=== PATIENT | female | born 1945 | race Caucasian/White ===

== ENCOUNTER → 2018-02-03 09:15 | Outpatient (CLI) | payer MEDICARE, BC ==
[2016-10-05 11:24] VITALS: BMI 34.4
[~2018-02-03 09:15] MED LIST: AMBIEN10 MG PO; BENADRYL25 MG PO; ELIQUIS2.5 MG PO; FARXIGA10 MG PO; NITROQUICK0.4 MG SL; OMEPRAZOLE20 M1 PO; OXYCODONE HCL5 MG PO
== END | disposition home or self-care (01) ==
LOC: D.NM 09:15
DX: Z96.651 Presence of right artificial knee joint (principal)

== ENCOUNTER → 2018-02-07 13:59 | Outpatient (CLI) | payer MEDICARE, BC ==
[2016-10-05 11:24] VITALS: BMI 34.4
[2018-02-07 15:32] LABS: BASOPHILS 0.4 % (0-2); EOSINOPHILS 2.8 % (0-7); HEMATOCRIT 39.7 % (36.0-48.0); HEMOGLOBIN 13.8 g/dL (12-16); IMMATURE GRANULOCYTES 0.1 % (0-5); LYMPHOCYTES 26.4 % (15-50); MCH 31.5 pg (26.0-34.0); MCHC 34.8 g/dL (31.0-37.0); MCV 90.6 fL (80.0-100.0); MEAN PLATELET VOLUME 10.5 fL (7.4-10.4); NEUTROPHILS 62.3 % (40-80); RBC 4.38 10x6/uL (4.00-5.40); WBC 7.7 10x3/uL (4.8-10.8)
[2018-02-07 15:40] LABS: PLATELET COUNT 263 10x3/uL (130-400)
[2018-02-07 16:59] LABS: ERYTHROCYTE SEDIMENTATION RATE 20 mm/hr (0-30)
== END | disposition home or self-care (01) ==
LOC: D.LABREF 13:59
PROVIDERS: Nurse Practitioner Family
DX: M25.561 Pain in right knee (principal)

== ENCOUNTER 2018-04-19 15:08 | Observation (INO) | payer MEDICARE, BC ==
[~2018-04-19] VITALS: Ht 160 cm; Wt 84.5 kg
--- NOTE | ~2018-04-19 | EC ---
PATIENT:DORI PEREYRA DATE OF SERVICE: 04/19/18 SEX: F MEDICAL RECORD: [id number] DATE OF : 47 LOCATION:D.M2 D.212 AGE OF PATIENT: 73 ADMISSION DATE: 04/19/18 REFERRING PHYSICIAN: INTERPRETING PHYSICIAN: MERRILL FRYE MD ECHOCARDIOGRAM REPORT ECHO CHARGES 4 ECHO COMPLETE Date: 04/20 CLINICAL DIAGNOSIS: CHEST PAIN, HTN AFIB ECHOCARDIOGRAPHIC MEASUREMENTS (adult normal given) AC root (d.<3.7cm) 3.8 cm LV Septum d (<1.2 cm> 1.8 cm Valve Excursion 2.0 cm LV Septum (systole) 2.0 cm Left Atria (s.<4.0cm> 3.4 cm LVPW d(<1.2cm) 1.8 cm RV (d.<2.3cm) 3.2 cm LVPW (sytole) 1.9 cm LV diastole(<5.6CM) 4.3 cm MV E-F(>70mm/sec) cm LV systole 2.7 cm LVOT Diameter 2.0 cm MV exc.(>10mm) 1.7 cm Est.ejection fraction (50-75%) % DOPPLER: LVIT cm/sec A 91.0 cm/sec E 77.0 cm/sec LA cm/sec RVSP 30 mmHg LVOT 137 cm/sec AOP1/2T 635 m/s Asc. Ao 169 cm/sec RVOT 107 cm/sec RA cm/sec PA 139 cm/sec AV Gradient Peak 11.42mmHg AV Mean 4.99 mmHg AV Area 2.2 cm MV Gradient Peak 4.45 mmHg MV Mean 1.69 mmHg MV Area cm COMMENTS: Machine Ii Engraver: 2 RIKI GRULLON Hand Spring Former: 4 Dr. Frye TAPE# PACS Pericardial Effusion N DATE OF SERVICE: FINDINGS: 1. The left ventricle has moderate concentric left ventricular hypertrophy with inflow characteristics consistent with diastolic dysfunction. Ejection fraction is 65%, somewhat hyperdynamic. 2. The left atrium is normal in size, shape, structure, and function. 3. The mitral valve is normal. 4. Aortic valve has sclerotic appearance without stenosis and trace to mild aortic insufficiency. ECHOCARDIOGRAM REPORT [id number] DORI PEREYRA 5. The tricuspid valve has mild tricuspid regurgitation with an RVSP of 25-30 mmHg. 6. The right ventricle is normal. 7. The right atrium is normal. 8. The pulmonic valve is normal. 9. The pericardium is normal. CONCLUSIONS: The patient has evidence of mild hypertensive heart disease with preserved LV systolic function and evidence of diastolic dysfunction with trace aortic regurgitation and aortic valve sclerosis without stenosis. TRANSINT:[id number] Voice Confirmation ID: [id number] DOCUMENT ID: [id number] MERRILL FRYE MD at 0927 CC: [id number] DICTATION DATE: 04/21/18 1006 TIE TAPE MACHINE OPERATOR: 04/21/18 1031 DIS IN 04/20/18 [facility] [address] [place] [address]
[2018-04-19] MEDS ORDERED: LISINOPRIL10 MG PO (15:16)
[2018-04-19] MEDS ORDERED: ULTRAM50 MG PO (15:16)
[2018-04-19] MEDS ORDERED: RESTORIL15 MG PO (15:16)
[2018-04-19 15:49] LABS: BASOPHILS 0.1 % (0-2); EOSINOPHILS 2.1 % (0-7); HEMATOCRIT 37.3 % (36.0-48.0); IMMATURE GRANULOCYTES 0.2 % (0-5); LYMPHOCYTES 23.9 % (15-50); MCH 31.6 pg (26.0-34.0); MCHC 34.9 g/dL (31.0-37.0); MCV 90.8 fL (80.0-100.0); MEAN PLATELET VOLUME 9.7 fL (7.4-10.4); MONOCYTES 7.4 % (2-11); NEUTROPHILS 66.3 % (40-80); PLATELET COUNT 308 10x3/uL (130-400); RBC 4.11 10x6/uL (4.00-5.40); RDW 12.9 % (11.5-14.5); WBC 8.4 10x3/uL (4.8-10.8)
[2018-04-19 16:00] VITALS: BP 146/78
[2018-04-19 16:09] LABS: ALBUMIN 3.1 g/dL (3.4-5.0); ALKALINE PHOSPHATASE 92 U/L (46-116); ALT (SGPT) 28 U/L (10-68); BILIRUBIN - TOTAL 0.21 mg/dL (0.2-1.3); CALC OSMOLALITY 283 mosm/kg (275-300); CALCIUM 10.5 mg/dL (8.5-10.1); CARBON DIOXIDE 28.6 mmol/L (21.0-32.0); CHLORIDE - SERUM 106 mmol/L (98-107); CREATININE - SERUM 1.1 mg/dL (0.6-1.3); GLUCOSE 143 mg/dL (74-106); POTASSIUM - SERUM 3.5 mmol/L (3.5-5.1); PROTEIN - SERUM 7.4 g/dL (6.4-8.2); SODIUM 142 mmol/L (136-145); UREA NITROGEN 11 mg/dL (7-18); eGFR NON AFRICAN AMERICAN 52 mL/min (90-120)
[2018-04-19 16:21] LABS: CKMB 2.9 U/L (0.0-3.6); CREATINE KINASE 127 UL (21-215); PRO BNP 65 pg/mL (0-125)
[2018-04-19 16:26] LABS: TROPONIN-I < 0.017 ng/mL (0.000-0.060)
[2018-04-19 16:30] VITALS: BP 140/74
[2018-04-19 17:00] VITALS: BP 141/80
[2018-04-19 17:49] VITALS: BP 142/79
[2018-04-19 20:46] VITALS: BP 159/68
[2018-04-19 23:43] VITALS: BP 159/68; BMI 33.0
[2018-04-20] VITALS: BP 139/67
[2018-04-20 04:00] VITALS: BP 157/62
[2018-04-20 07:56] VITALS: BP 124/59
[2018-04-20 10:52] VITALS: Ht 160 cm; Wt 84.5 kg
[2018-04-20 12:22] VITALS: BP 146/64
== END 2018-04-20 14:49 | disposition home or self-care (01) ==
LOC: D.ER 15:08 → D.M2 17:21 → OBSVTIME 17:21 → D.EDHOLD 17:21 → D.M2 18:16
PROVIDERS: Family Medicine
DX: R07.9 Chest pain, unspecified (principal); I10 Essential (primary) hypertension; E11.9 Type 2 diabetes mellitus without complications; Z87.891 Personal history of nicotine dependence; M54.2 Cervicalgia; R60.9 Edema, unspecified

== ENCOUNTER 2018-07-31 08:18 | Outpatient (CLI) | payer MEDICARE, BC ==
[~2018-07-31] VITALS: Ht 160 cm; Wt 81.4 kg
--- NOTE | ~2018-07-31 | OP ---
PATIENT NAME: DORI PEREYRA MEDICAL RECORD: [id number] :47 LOCATION:D.CAT ADMISSION DATE: SURGEON: MARIA M ALMENDAREZ MD DATE OF OPERATION: 07/31/2018 PROCEDURES: 1. PTCA stent RCA. 2. Left heart catheterization. 3. Selective coronary angiography. 4. Left ventriculogram. INDICATION: Angina and coronary artery disease. PROCEDURE IN DETAIL: After informed consent was obtained and after a detailed description of the risks, benefits as well as alternative therapies, the patient elected to proceed with angiogram and angioplasty. The right radial area was prepped and draped in normal sterile fashion. Right radial artery was cannulated via modified Seldinger technique with placement of 6-Beninese sheath. All catheters exchanged through this sheath. FINDINGS: The left ventriculogram was performed in standard 30-degree GARCIA view, reveals good cardiac wall motion throughout all segments. Overall ejection fraction estimated 60%. SELECTIVE CORONARY ANGIOGRAPHY: 1. Left main is with no significant angiographic disease. 2. Left anterior descending has moderate irregularities, but no flow-limiting stenosis. 3. The left circumflex has moderate irregularities, but no flow-limiting stenosis. 4. Right coronary artery has 70% to 80% stenosis distally. PTCA STENT OF THE RCA: The stent used was a 3.0 x 9 mm Integrity. Result was 0% residual stenosis. OVERALL IMPRESSION: Successful percutaneous transluminal coronary angioplasty stent of the right coronary artery going from 80% initial stenosis to 0% residual. TRANSINT:[id number] Voice Confirmation ID: [id number] DOCUMENT ID: [id number] MARIA M ALMENDAREZ MD at 0923 CC: [id number] DICTATION DATE: 07/31/18 1012 EVENT PLANNING INTERN: 07/31/18 1145 DEP CLI 07/31/18 [place] [id number] [place] [id number]
--- NOTE | ~2018-07-31 | HEMODYNAMI ---
PATIENT:DORI PEREYRA MEDICAL RECORD: [id number] : 47 LOCATION:RAY ADMISSION DATE: 07/31/18 Generatedon:07/31/201810:13 Patient name: DORI PEREYRA Patient #: [id number] SSN: : 1945 Date of study: 07/31/2018 Page: Of Hemodynamic Procedure Report Patient Data Patient Demographics Procedure consent was obtained First Name: DORI Gender: Female Last Name: RODDY : 1945 Middle Initial: CHRISTIANO Age: 73 year(s) Patient #: [id number] Race: Unknown Additional ID: [id number] Contact details [address]: [address] [place] [address] State: [place] City: [place] Zip code: [address] Past Medical History Allergies Allergen Reaction Date Comments Reported Other allergy 07/31/2018 sulfa Admission Admission Data Admission Date: 07/31/2018 Admission Time: 8:18 Height (in.): 5.4 BSA: 0.31 (m2) Height (cm.): 13.72 BMI: 4364.05 (kg/m2) Weight (lbs.): 181 Weight (kg.): 82.1 Lab Results Lab Result Date: 07/31/2018 Lab Result Time: 0:00 Biochemistry Name Units Result Min Max BUN mg/dl 12 --(-*--)-- 7 18 Creatinine mg/dl 0.7 --(*---)-- 0.6 1.3 CBC Name Units Result Min Max Hemoglobin g/dl 13.4 -*(----)-- 13.5 17.5 Procedure Procedure Types Cath Procedure Diagnostic Procedure [facility] w/Coronaries PCI Procedure Coronary Stent Coronary Stent Initial Procedure Description Procedure Date Procedure Date: 07/31/2018 Procedure Start Time: 9:56 Procedure End Time: 10:09 Procedure Staff Name Function Shankar Cordero MD Performing Physician Sudha Evans RT Monitor Cassy Song RT Scrub June Adler RN Nurse Haylie Ballard RN Nurse Procedure Data Cath Procedure Fluoroscopy Diagnostic fluoroscopy Total fluoroscopy Time: 2.7 time: 2.7 min min Diagnostic fluoroscopy Total fluoroscopy dose: 878 dose: 878 mGy mGy Contrast Material Contrast Material Type Amount (ml) Isovue 300 84 Entry Location Entry Primary Successful Side Size Upsize Upsize Entry Closure Shah ccessful Closure Location (Fr) 1 (Fr) 2 (Fr) Remarks Device Remarks Radial Right 6 Fr Mechanical artery Short Compression Estimated blood loss: 11 ml Diagnostic catheters Device Type Used For End Catheter Placement DIAGNOSTIC [place] 110cm 5 Procedure Fr catheter ([id number]) Procedure Complications No complications Procedure Medications Medication Administration Route Dosage Oxygen etCO2 Nasal cannula 2 l/min Lidocaine 2% added to field 20 Heparin Flush Bag added to field 2 bags (1000units/500ml NS) 0.9% NaCl I.V. 100 ml/hr Radial Cocktail I.A. 1 syringe (Verapomil 2mg/Nitro 400mcg/Heparin 1500units) Versed I.V. 1 mg Fentanyl I.V. 50 mcg Heparin Bolus I.V. 4000 units Integrilin (Bolus I.V. 7.3 ml 2mg/ml) Versed I.V. 1 mg Fentanyl I.V. 50 mcg Plavix P.O. 600 mg Hemodynamics Rest BSA: 0.31 (m2) HGB: 13.4 (g/dl) O2 Consumption: Estimated: 28.59 (ml/min) O2 Con sumption indexed: Estimated:92.23 (ml/min/m) Heart Rate: 71 (bpm) Snapshots Pre Cath Intra NCS Post Cath Vital Signs Time Heart Resp SPO2 etCO2 NIBP (mmHg) Rhythm Pain Sedation Rate (ipm) (%) (mmHg) Status Level (bpm) 9:41:02 71 16 96 27.9 139/69(119) NSR 0 (11) 10(A) , No pain 9:45:45 68 23 98 27.2 121/59(91) NSR 0 (11) 10(A) , No pain 9:50:28 73 16 98 13.6 121/55(87) NSR 0 (11) 10(A) , No pain 9:55:10 74 16 93 31.7 123/58(99) NSR 0 (11) 10(A) , No pain 9:59:51 78 18 95 27.2 110/50(86) NSR 0 (11) 10(A) , No pain 10:04:32 82 15 93 37.7 109/49(86) NSR 0 (11) 10(A) , No pain 10:09:12 76 18 96 34.7 114/49(92) NSR 0 (11) 10(A) , No pain Medications Time Medication Route Dose Verified Delivered Reason Not es Effectiveness by by 9:44:29 Oxygen etCO2 2 l/min Shankar Watkins used for Nasal Gil Adler RN procedure cannula 9:44:38 Lidocaine 2% added 20ml Shankar Chaparro for local to vial Gil Cordero MD anesthetic field 9:44:44 Heparin Flush added 2 bags Shankar Chaparro used for Bag to Gil Cordero MD procedure (1000units/500ml field NS) 9:44:54 0.9% NaCl I.V. 100 Shankar Watkins Per physician ml/hr Gil Adler RN 9:53:45 Versed I.V. 1 mg Shankar Watkins for sedation Gil Adler RN 9:53:52 Fentanyl I.V. 50 mcg Shankar Watkins for sedation Gil Adler RN 9:57:04 Fentanyl I.V. 50 mcg Shankar Watkins for sedation Gil Adler RN 9:57:39 Radial Cocktail I.A. 1 Shankar Watkins for (Verapomil syringe Gil Adler RN vasodilation 2mg/Nitro 400mcg/Heparin 1500units) 9:57:59 Versed I.V. 1 mg Shankar Watkins for sedation Gil Adler RN 10:02:48 Heparin Bolus I.V. 4000 Shankar Watkins for carolee ified units Gil Adler RN anticoagulation with dr cordero 10:05:29 Integrilin I.V. 7.3 ml Shankar Watkins for was leticia (Bolus 2mg/ml) Gil Adler RN antiplatelet 2.7 ml therapy of vial 10:10:35 Plavix P.O. 600 mg Shankar Watkins for Gil Adler RN antiplatelet therapy Procedure Log Time Note 9:28:37 June Adler RN sent for patient. Start room use. 9:35:45 Time tracking: Regular hours (M-F 7:00 - 5:00) 9:35:48 Plan of Care:Hemodynamics will remain stable., Cardiac rhythm will remain stable., Comfort level will be maintained., Respiratory function will remain adequate., Patient/ family verbilizes understanding of procedure., Procedure tolerated without complication., Recovers from procedure without complications.. 9:35:49 Signed procedure consent form obtained from patient. 9:35:56 H&P Date Dictated: 07/27/2018 Within 30 days and on chart., H&P Addendum completed by physician on day of procedure. (MUST COMPLETE FOR ALL OUTPATIENTS). 9:36:01 Patient received from Pre/Post Procedure Room to CCL 1 Alert and oriented. Tansferred to table in Supine position. 9:36:02 Warm blankets applied, and london hugger turned on for patient comfort. 9:36:03 Correct patient and procedure confirmed by team. 9:36:03 ECG and BP/O2 sat monitors applied to patient. 9:40:09 Vital chart was started 9:43:13 Baseline sample Acquired. 9:43:16 Rhythm: sinus rhythm 9:43:18 Full Disclosure recording started 9:43:19 Pre-procedure instructions explained to patient. 9:43:19 Pre-op teaching completed and patient verbalized understanding. 9:43:20 Family in waiting room. 9:43:21 Patient NPO since Midnight. 9:43:30 Patient allergic to Other allergysulfa 9:43:33 Is the patient allergic to Iodine/contrast media? No. 9:43:42 Is patient on blood thinner?No 9:44:29 Oxygen 2 l/min etCO2 Nasal cannula was administered by June Adler RN; used for procedure; 9:44:33 Patient diabetic? No. 9:44:38 Lidocaine 2% 20ml vial added to field was administered by Shankar Cordero MD; for local anesthetic; 9:44:43 DIET CONTROLLED 9:44:44 Heparin Flush Bag (1000units/500ml NS) 2 bags added to field was administered by Shankar Cordero MD; used for procedure; 9:44:46 Patient not . Patient is over age 55. 9:44:51 Previous problem with sedation/anesthesia? No ? 9:44:53 Snore? Yes 9:44:53 Sleep apnea? No 9:44:54 0.9% NaCl 100 ml/hr I.V. was administered by Buffie Adler RN; Per physician; 9:44:55 Deviated septum? No 9:44:55 Opens mouth fully? Yes 9:44:56 Sticks out tongue? Yes 9:46:04 Airway obstruction? No ? 9:46:09 Dentures? Yes IN TIGHT 9:46:16 Modified Dheeraj's test Ulnar < 7 seconds 9:46:18 Patient pain scale 0/10 ?. 9:46:30 IV patent on arrival in left hand with 0.9% NaCl at [facility]. 9:48:44 Lab Result : BUN 12 mg/dl 9:48:44 Lab Result : Creatinine 0.7 mg/dl 9:48:44 Lab Result : Hemoglobin 13.4 g/dl 9:48:47 Lab results completed and on chart. 9:48:52 Right Radial & Right Groin area was prepped with chlora-prep and draped in sterile fashion 9:48:53 Alarms reviewed by R. N. 9:48:53 Sharps counted by scrub and verified by R.N. 9:48:57 Use device set Radial Dx or PCI 9:48:58 ACIST Syringe (31184) opened to sterile field. 9:48:58 Bag Decanter () opened to sterile field. 9:48:59 ACIST Hand Control (90068) opened to sterile field. 9:48:59 ACIST Manifold (68954) opened to sterile field. 9:49:02 Tegaderm 4 x 4 (1626W) opened to sterile field. 9:49:03 Medline Cath Pack ([id number]) opened to sterile field. 9:49:04 DIAGNOSTIC WIRE .035 260cm J wire (595927) opened to sterile field. 9:49:04 MBrace Wrist Support ([id number]) opened to sterile field. 9:49:05 SHEATH 6Fr Prelude Radial ([id number]) opened to sterile field. 9:51:47 Patient Height : 5.4 inches 9:51:51 Patient Weight : 181 lbs 9:52:34 --------ALL STOP TIME OUT------ 9:52:35 Final Timeout: patient, procedure, and site verified with staff and physician. All members of the team are in agreement. 9:52:37 Right Radial & Right Groin site verified by team. 9:52:40 Physical assessment completed. ASA score P 2 - A patient with mild systemic disease as per Shankar Cordero MD. 9:52:43 Sedation plan: IV Moderate Sedation Medication:Versed, Fentanyl 9:53:11 Zero performed for pressure channel P1 9:53:33 Zero performed for pressure channel P1 9:53:45 Versed 1 mg I.V. was administered by June Adler RN; for sedation; 9::52 Fentanyl 50 mcg I.V. was administered by June Adler RN; for sedation; 9:56:28 Procedure started. 9:56:55 Local anesthetic to right radial artery with Lidocaine 2% by Shankar Cordero MD.INITIAL ACCESS ONLY 9:57:04 Fentanyl 50 mcg I.V. was administered by June Adler RN; for sedation; 9:57:33 A 6 Fr Short sheath was inserted into the Right Radial artery 9:57:39 Radial Cocktail (Verapomil 2mg/Nitro 400mcg/Heparin 1500units) 1 syringe I.A. was administered by June Adler RN; for vasodilation; 9:57:59 Versed 1 mg I.V. was administered by June Adler RN; for sedation; 9:58:03 A DIAGNOSTIC [place] 110cm 5 Fr catheter ([id number]) was advanced over the wire and used for Procedure. 9:58:58 LV gram done using GARCIA 9:59:04 Injector settings: Ml/sec: 5, Volume: 15, 9:59:10 EF : 55 % 10:00:22 LCA angiography performed. 10:00:52 RCA angiography performed. 10:00:54 Catheter exchanged over wire. 10:01:03 INFLATOR Merit BasixCompak (OQ4163) opened to sterile field. 10:01:04 CHOICE PT Extra Support 182cm wire ([id number]) opened to sterile field. 10:02:01 GUIDE 6FR AR 2.0 catheter ([id number]) opened to sterile field. 10:02:10 6 Fr AR2 guide catheter was inserted over the wire 10:02:48 Heparin Bolus 4000 units I.V. was administered by June Adler RN; for anticoagulation; verified with dr cordero 10:03:26 CHOICE ES 182 wire advanced. 10:04:26 Wire advanced across lesion. 10:05:27 Place stent Inflation Number: 1 A INTEGRITY RX 3.0 x 09 stent ([id number]) was prepped and advanced across the Dist RCA. The stent was deployed at 13 KATLYN for 0:10 (min:sec). 10:05:29 Integrilin (Bolus 2mg/ml) 7.3 ml I.V. was administered by June Adler RN; for antiplatelet therapy; wasted 2.7 ml of vial 10:05:50 Stent catheter was removed intact over wire. 10:05:52 Wire removed. 10:05:52 Guide catheter removed. 10:06:03 Procedure ended.(Physican Out) 10:06:27 TR BAND Standard ([id number]) opened to sterile field. 10:06:36 Sheath removed intact; hemostasis achieved with Mechanical Compression to the Right Radial artery. 10:07:28 Fluoroscopy time 02.70 minutes. 10:07:35 Flurop Dose total: 878 10:07:35 Fluoroscopy dose: 878 mGy 10:07:39 Contrast amount:Isovue 300 84ml. 10:07:41 Sharps counted by scrub and verified by R.N. 10:07:46 TR band inflated with 10cc of air. 10:07:49 Post-procedure physical assessment completed. ASA score P 2 - A patient with mild systemic disease as per Shankar Cordero MD. 10:07:52 Post procedure rhythm: sinus rhythm 10:07:54 Estimated blood loss: 11 ml 10:07:57 Post procedure instruction explained to patient.Patient verbalizes understanding. 10:07:57 Patient needs reinforcement of post procedure teaching. 10:08:11 Procedure type changed to Cath procedure, Diagnostic procedure, LHC, LHC w/Coronaries, PCI procedure, Coronary Stent, Coronary Stent Initial 10:09:05 Procedure and supply charges have been captured, reviewed, submitted and are correct. 10:09:08 Procedure Complication : No complications 10:09:11 Vital chart was stopped 10:09:11 See physician's report for complete and final results. 10:09:13 Report given to Pre/Post Procedure Room. 10:09:16 Patient transfered to Pre/Post Procedure Room with Bed. 10:09:18 Procedure ended. 10:09:18 Full Disclosure recording stopped 10:09:20 End room use (Document Last) 10:10:35 Plavix 600 mg P.O. was administered by Buffie Adler RN; for antiplatelet therapy; Intervention Summary Intervention Notes Time ActionType Lesion and Equipment Action# Pressure Duration Attributes Used 10:05:27 Place stent Dist RCA INTEGRITY RX 1 13 00:10 3.0 x 09 stent ([id number]) Device Usage Item Name Manufacture Quantity Catalog Number Hospital Part Current M inimal Lot# / Charge Number Stock Stock Serial# Code ACIST Syringe Acist 1 80423 759584 713929 127771 2 0 (19770) Medical Systems LabStyle Innovations Bag Decanter Microtek 1 2001S 467345 89635 927466 5 (2001S) Medical Inc. ACIST Hand Acist 1 69444 128555 443736 897207 5 Control (34356) [employer]Style Innovations ACIST Manifold Acist 1 43119 291997 209710 531900 5 (75068) Medical Systems [employer]Style Innovations Tegaderm 4 x 4 3M 1 1626W 569328 315695 446736 5 (1626W) Medline Cath Cardinal 1 [id number] 458829 31885 259136 5 ALEXANDALEXA ([id number]) DIAGNOSTIC WIRE St Jordin 1 016678 887279 784807 532129 3 0 .035 260cm J wire (343833) MBrace Wrist Advanced 1 140-0250-00 271901 50980 395214 5 Support Vascular ([id number]) Dynamics SHEATH 6Fr Merit 1 [id number] 274858 885790 689736 5 Prelude Radial Medical ([id number]) DIAGNOSTIC Terumo 1 40-6301 150888 633373 464675 5 [place] 110cm 5 Fr catheter (097391) INFLATOR Merit Merit 1 [id number] 056753 197834 582330 1 5 Funding [employer] [facility] (TU7868) CHOICE PT Extra Creola 1 [id number] 284530 565912 050465 5 Support 182cm Scientific wire ([id number]) GUIDE 6FR AR Medtronic 1 [id number] 128662 56254 729074 1 2.0 catheter ([id number]) INTEGRITY RX Medtronic 1 [id number] 778507 596714 478650 5 [id number] 3.0 x 09 stent ([id number]) TR BAND Terumo 1 [id number] 419251 383994 605714 4 0 Standard ([id number]) Signature Audit [place] Stage Time Signature Unsigned Intra-Procedure 07/31/2018 Sudha Evans 10:13:49 AM RT(R) Signatures Monitor : Sudha Evans Signature : RT Date : Time : [address] [place] [address]
[~2018-07-31 08:18] MED LIST changes: +LISINOPRIL10 MG PO; +RESTORIL15 MG PO; +ULTRAM50 MG PO
[2018-07-31] MEDS ORDERED: CALCIUM 600 +1 EAC3 PO (08:37)
[2018-07-31 08:50] VITALS: BP 121/70; Ht 160 cm; Wt 81.4 kg
[2018-07-31 09:12] LABS: BASOPHILS 0.3 % (0-2); EOSINOPHILS 2.7 % (0-7); HEMOGLOBIN 13.4 g/dL (12-16); IMMATURE GRANULOCYTES 0.2 % (0-5); LYMPHOCYTES 25.8 % (15-50); MCH 30.9 pg (26.0-34.0); MCHC 34.4 g/dL (31.0-37.0); MCV 90.1 fL (80.0-100.0); MEAN PLATELET VOLUME 10.1 fL (7.4-10.4); MONOCYTES 6.2 % (2-11); NEUTROPHILS 64.8 % (40-80); PLATELET COUNT 297 10x3/uL (130-400); RBC 4.33 10x6/uL (4.00-5.40); RDW 13.9 % (11.5-14.5); WBC 9.2 10x3/uL (4.8-10.8)
[2018-07-31 09:20] LABS: CALC OSMOLALITY 279 mosm/kg (275-300); CALCIUM 9.8 mg/dL (8.5-10.1); CARBON DIOXIDE 26.2 mmol/L (21.0-32.0); CHLORIDE - SERUM 107 mmol/L (98-107); CREATININE - SERUM 0.7 mg/dL (0.6-1.3); GLUCOSE 124 mg/dL (74-106); POTASSIUM - SERUM 3.7 mmol/L (3.5-5.1); SODIUM 140 mmol/L (136-145); UREA NITROGEN 12 mg/dL (7-18); eGFR NON AFRICAN AMERICAN 87 mL/min (90-120)
[2018-07-31] MEDS ORDERED: PLAVIX75 MG PO (10:31)
== END 2018-07-31 14:24 | disposition home or self-care (01) ==
LOC: D.CATH 08:18
PROVIDERS: Internal Medicine Interventional Cardiology
DX: I25.119 Atherosclerotic heart disease of native coronary artery with unspecified angina pectoris (principal); Z01.812 Encounter for preprocedural laboratory examination

== ENCOUNTER → 2019-01-15 09:32 | Outpatient (CLI) | payer MEDICARE, BC ==
[2018-07-31 08:50] VITALS: BMI 31.7
[~2019-01-15 09:32] MED LIST changes: +CALCIUM 600 +1 EAC3 PO; +PLAVIX75 MG PO
== END | disposition home or self-care (01) ==
LOC: D.RAD 09:32
PROVIDERS: ATTEND Emergency Medicine
DX: R13.19 Other dysphagia (principal)

== ENCOUNTER → 2021-04-13 10:51 | Outpatient (CLI) | payer OTHER, MEDICAID ==
[2018-07-31 08:50] VITALS: BMI 31.7
--- NOTE | 2021-04-14 14:32 | EC ---
PATIENT:DORI PEREYRA DATE OF SERVICE: 04/13/21 SEX: F MEDICAL RECORD: [id number] DATE OF : 47 LOCATION:[facility] AGE OF PATIENT: 76 ADMISSION DATE: 04/13/21 REFERRING PHYSICIAN: INTERPRETING PHYSICIAN: OSMAR ENGLISH MD ECHOCARDIOGRAM REPORT ECHO CHARGES 4 ECHO COMPLETE Date: 04/13/21 CLINICAL DIAGNOSIS: CAD/ASSESS EF AND AORTIC INSUFFICIENCY ECHOCARDIOGRAPHIC MEASUREMENTS (adult normal given) AC root (d.<3.7cm) 3.8 cm LV Septum d (<1.2 cm> 1.5 cm Valve Excursion 1.3 cm LV Septum (systole) 1.8 cm Left Atria (s.<4.0cm> 3.8 cm LVPW d(<1.2cm) 1.5 cm RV (d.<2.3cm) 3.6 cm LVPW (sytole) 1.8 cm LV diastole(<5.6CM) 6.2 cm MV E-F(>70mm/sec) cm LV systole 4.3 cm LVOT Diameter 2.0 cm MV exc.(>10mm) 1.2 cm Est.ejection fraction (50-75%) % DOPPLER: LVIT cm/sec A 108.0cm/sec E 73.0 cm/sec LA cm/sec RVSP 17 mmHg LVOT 89 cm/sec AOP1/2T 631 m/s Asc. Ao 138 cm/sec RVOT 94 cm/sec RA cm/sec PA 124 cm/sec AV Gradient Peak 7.57 mmHg AV Mean 3.64 mmHg AV Area 2.4 cm MV Gradient Peak 5.26 mmHg MV Mean 2.43 mmHg MV Area cm COMMENTS: Asp Net Developer: 2 RIKI GRULLON Manager General: 3 Dr. Cardenas TAPE# PACS Pericardial Effusion N DATE OF SERVICE: Adequate 2D, color flow imaging, spectral Doppler, and M-Mode. FINDINGS: LVH is present. LV internal dimensions are dilated. Wall motion is normal. EF is greater than or equal to 55%. Aortic valve is sclerotic. No evidence of stenosis. There is mild AI on color flow imaging. Left atrium is normal at 3.8 cm. Mitral valve shows no prolapse. Trace MR. Ride side is grossly normal. Mild TR. ECHOCARDIOGRAM REPORT [id number] DORI PEREYRA TRANSINT:[id number] Voice Confirmation ID: [id number] DOCUMENT ID: [id number] OSMAR ENGLISH MD at 1432 CC: [id number] DICTATION DATE: 04/13/21 1636 GLOBAL MARKETING COORDINATOR: 04/13/21 2303 DEP CLI 04/13/21 [facility] [address] [place] [id number]
== END | disposition home or self-care (01) ==
LOC: D.HCCECHO 10:51
PROVIDERS: ATTEND Internal Medicine Interventional Cardiology
DX: I25.10 Atherosclerotic heart disease of native coronary artery without angina pectoris (principal)